=== PATIENT | male | born 1990 | race Two or more races ===

== ENCOUNTER 2020-01-29 15:36 | Outpatient (CLI) | payer OTHER | END 2020-01-29 15:48 | disposition home or self-care (01) | LOC: RAD 15:36 | DX: M79.641 Pain in right hand (principal); M25.531 Pain in right wrist ==

== ENCOUNTER 2022-02-20 15:22 | Outpatient (CLI) | payer OTHER | END 2022-02-20 15:23 | disposition home or self-care (01) | LOC: LAB 15:22 | DX: N18.1 Chronic kidney disease, stage 1 (principal); N46.11 Organic oligospermia ==

== ENCOUNTER → 2022-02-21 | Outpatient (CLI) | payer OTHER | END | disposition home or self-care (01) | LOC: TOM 07:53 | DX: R55 Syncope and collapse (principal); S06.0X0A Concussion without loss of consciousness, initial encounter ==

== ENCOUNTER 2022-06-13 09:37 | Outpatient (CLI) | payer OTHER | END 2022-06-13 09:44 | disposition home or self-care (01) | LOC: RAD 09:37 | DX: M25.532 Pain in left wrist (principal) ==